=== PATIENT | male | born 1995 | race Caucasian/White ===

== ENCOUNTER 2016-12-10 23:44 | Emergency (ER) | payer OTHER ==
[2016-12-10 23:52] VITALS: TEMP 36.6
[2016-12-11] VITALS: O2SAT 97
--- NOTE | 2016-12-11 00:15 | EMERGENCY ROOM VISIT NOTE ---
History Report prepared by Tomas: Marilyn Osullivan Under the Supervision of: Dr. Moris Pino M.D. First contact with patient: 23:44 Chief Complaint: ALCOHOL OVERDOSE Stated Complaint: ALCOHOL History of Present Illness The patient is a 19 year old male who presents to the Emergency Room with complaints of an episode of alcohol overdose occurring prior to arrival. Per EMS , the patient was found lying on the ground outside [facility]. They report that the patient was with his girlfriend who ran when they showed up. They state that the patient vomited twice. They report that he told them he is on an ADHD medication and denies abusing it. HPI is limited secondary to alcohol intoxication. Source of History: EMS History Limited By: intoxication Onset: priro to arrival Position: other (global) Quality: other (global) Timing: other (episode) Associated Symptoms: + vomiting Review of Systems See HPI for pertinent positives & negatives. A total of 10 systems reviewed and were otherwise negative. Past Medical & Surgical Medical Problems: (1) ADHD Family History No pertinent family history Social History Alcohol Use: occasionally Marital Status: in relationship Housing Status: lives with roommate Occupation Status: [employer] student Current/Historical Medications No Active Prescriptions or Reported Meds Allergies Coded Allergies: No Known Allergies (Unverified , 12/11/16) Physical Exam Vital Signs Date Time Temp Pulse Resp B/P (MAP) Pulse Ox O2 Delivery O2 Flow Rate FiO2 12/11/16 07:40 76 18 128/85 99 12/11/16 07:21 62 16 97/57 95 Room Air 12/11/16 06:00 62 16 96/47 95 Room Air 12/11/16 05:00 67 18 96/49 94 Room Air 12/11/16 04:00 63 20 93/44 94 Room Air 12/11/16 03:50 63 12/11/16 03:00 64 16 117/64 96 Nasal Cannula 2.0 12/11/16 02:00 72 22 121/75 96 Room Air 12/11/16 01:00 70 16 120/67 99 Nasal Cannula 2.0 12/11/16 00:00 97 Nasal Cannula 2.0 12/10/16 23:52 36.6 59 20 129/64 96 Room Air 12/10/16 23:52 96 12/10/16 23:50 66 Physical Exam GENERAL: Patient is heavily intoxicated. Smells of alcohol. Well appearing and in no acute distress. Slurred speech. HEAD: No evidence of Trauma. AT/NC EYES: Injected conjunctiva. Normal EOM. Pupils equal/reactive. ENT: Mucous membranes moist, no nasal congestion, . NECK: No step-offs, no adenopathy, no meningismus, trachea is midline. LUNGS: No dyspnea. Clear to auscultation and equal bilaterally. No wheeze, no rhonchi. HEART: Regular rate and rhythm. No murmurs, rubs, gallops appreciated. ABDOMEN: Soft, nontender, bowel sounds positive, no masses appreciated, no peritonitis. BACK: No midline tenderness, no CVA tenderness EXTREMITIES: Normal motion all extremities, no cyanosis, no edema. NEUROLOGIC: Intoxicated. No acute motor or sensory deficits, no focal weakness , cranial nerves grossly intact. SKIN: No rash, no jaundice, no diaphoresis. Medical Decision & Procedures Laboratory Results 12/10/16 23:51 Test 12/10/16 23:51 Anion Gap 9.0 mmol/L (3-11) Estimated GFR () 144.4 Estimated GFR (Non- 124.6 BUN/Creatinine Ratio 8.2 (10-20) Calcium Level 8.2 mg/dl (8.5-10.1) Ethyl Alcohol mg/dL 285.0 mg/dl (0-3) Laboratory results as reviewed by me. ED Course 2345: The patient was evaluated in room B12B. A complete history and physical exam was performed. 0441: I reevaluated the patient and he was sleeping comfortably. The patient was discharged once he was awake, alert and sober. Medical Decision Differential: Alcohol Intoxication, Drug Intoxication, Electrolyte Abnormality, Trauma, Intracranial Event, Toxicological, Excited Delirium, Serotonin Syndrome , amongst other pathologies entertained. 21 yr old intoxicated male brought in by EMS after being heavily intoxicated outside [facility]. Patient with no evidence nor history for trauma. Protecting airway and breathing comfortably throughout ED stay. EtOH positive. Monitored and discharged when awake, alert, oriented and denies any complaints. Eventually awoke and I discussed no further etoh and dangers of his intoxication with him and friend that sleep bedside throughout evening. Medication Reconcilliation Current Medication List: was personally reviewed by me Blood Pressure Screening Patient's blood pressure: Normal blood pressure Blood pressure disposition: Did not require urgent referral Impression Primary Impression: Alcohol abuse Additional Impressions: Alcohol use with intoxication Hypokalemia Scribe Attestation The scribe's documentation has been prepared under my direction and personally reviewed by me in its entirety. I confirm that the note above accurately reflects all work, treatment, procedures, and medical decision making performed by me. Departure Information Dispostion Home / Self-Care Prescriptions No Active Prescriptions or Reported Meds Patient Instructions My [facility] Additional Instructions You were evaluated in emergency department for intoxication. This is a sign of Alcohol Abuse and should not be taken lightly. You had a blood alcohol level that was significantly elevated. Over the next 24 hours keep well hydrated and eat light meals. Your potassium was mildly low. Make sure to eat a well balanced diet. Don't drink any more alcohol. This is important. Please discuss this visit with your Primary Care Provider, [facility] and/or your loved ones. Unless an exceptional circumstance, the Hospital DOES NOT contact anyone DURING your visit, nor is your Protected Medical Information released to anyone without your approval/request. This means we do not contact your Parents, the Police, etc. However, you will likely receive a bill from the Hospital and/or your Insurance company, which will usually be sent to the Primary Policy Leslie (often one's Parents). Furthermore, as a student, your visit report will likely be sent to [facility] as your primary care provider, unless other Provider listed. If your incident was on campus, or if the Police were involved, they will often contact the University to make them aware of what happened. Often this will result in you being required to take Alcohol Education classes (ie BASICS class) . Please see information given to you at discharge regarding contact for this. If the Police were involved you will likely be cited for public intoxication. Please contact either [facility] Police or the [place] Police for further information. Call 911 or return to Emergency Department if you develop: Passing out, difficulty breathing, many episodes of vomiting, blood in vomit or stool, abdominal pain, fevers, or other severe symptoms. We are always here to help if you feel you need further evaluation or treatment. Problem Qualifiers
[2016-12-11 00:29] LABS: BLOOD UREA NITROGEN 7 mg/dl (7-18); BUN/CREATININE RATIO 8.2 (10-20); CALCIUM 8.2 mg/dl (8.5-10.1); CARBON DIOXIDE 25 mmol/L (21-32); CHLORIDE 105 mmol/L (98-107); CREATININE 0.85 mg/dl (0.60-1.40); GLUCOSE 122 mg/dl (70-99); SODIUM 139 mmol/L (136-145)
[2016-12-11 07:40] VITALS: BP 128/85; PULSE 76; O2SAT 99
== END 2016-12-11 07:40 | disposition home or self-care (01) ==
LOC: EDBD 23:44 → C.EDB 23:46
DX: F10.120 Alcohol abuse with intoxication, uncomplicated (principal); E87.6 Hypokalemia; F90.9 Attention-deficit hyperactivity disorder, unspecified type